=== PATIENT | male | born 1970 | race Caucasian/White ===

== ENCOUNTER 2018-04-02 09:07 | Outpatient (CLI) | payer BC ==
[2018-04-02 10:04] LABS: BASOPHILS # (AUTO) 0.1 /CMM (0.0-0.2); BASOPHILS % (AUTO) 0.7 % (0.0-2.0); EOSINOPHILS % (AUTO) 1.2 % (0.0-6.0); HEMATOCRIT 49 % (39-51); LYMPHOCYTES # (AUTO) 2.5 /CMM (0.8-4.8); LYMPHOCYTES % (AUTO) 33.7 % (20.0-44.0); MEAN CORPUSCULAR HGB CONC 33 g/dl (31.0-36.0); MEAN CORPUSCULAR VOLUME 84 fL (80-96); MONOCYTES # (AUTO) 0.4 /CMM (0.1-1.30); NEUTROPHILS # (AUTO) 4.3 /CMM (1.8-8.9); NEUTROPHILS % (AUTO) 58.4 % (43.0-81.0); PLATELET COUNT (AUTO) 252 /CMM (150-450); RDW COEFFICIENT OF VARIATION 12.7 (11.5-15.0); RED BLOOD CELL COUNT(AUTO) 5.81 MIL/uL (4.5-6.0); WHITE BLOOD COUNT (AUTO) 7.4 K/uL (4.3-11.0)
[2018-04-02 10:22] LABS: BILIRUBIN,TOTAL 0.5 mg/dL (0.2-1.0); CALCIUM, SERUM 9.2 mg/dL (8.5-10.1); CREATININE 0.8 mg/dL (0.6-1.3); POTASSIUM 4.1 mmol/L (3.5-5.1); TOTAL PROTEIN, SERUM 7.5 g/dL (6.4-8.2)
[2018-04-02 10:36] LABS: PROSTATE SPECIFIC ANTIGEN SCR 1.7 ng/mL (0.00-4.00); THYROID STIMULATING HORMONE 1.545 uIU/mL (0.358-3.74)
[2018-04-02 11:06] LABS: APPEARANCE,URINE CLEAR (CLEAR); BILIRUBIN,URINE NEGATIVE (NEGATIVE); BLOOD, URINE NEGATIVE Ery/uL (NEGATIVE); COLOR,URINE YELLOW (YELLOW); KETONES,URINE 2+ (NEGATIVE); LEUKOCYTE ESTERASE ,URINE NEGATIVE (NEGATIVE); NITRITE, URINE NEGATIVE (NEGATIVE); PH,URINE 5.5 (5.0-8.0); PROTEIN,URINE NEGATIVE (NEGATIVE); UGLUCOSE 3+ mg/dL (NEGATIVE); UROBILINOGEN,URINE 0.2 EU/dL (0.2)
[2018-04-02 11:12] LABS: BACTERIA,URINE Moderate /HPF (None Seen); RBC,URINE 0-2 /HPF (0-2); SQUAMOUS EPITHELIAL CELL,UR Rare /HPF (None Seen)
[2018-04-03 09:31] LABS: URIC ACID 4.6 mg/dL (2.6-7.2)
== END 2018-04-02 23:59 | disposition home or self-care (01) ==
LOC: LAB 09:07
PROVIDERS: ATTEND Legal Medicine
DX: Z00.01 Encounter for general adult medical examination with abnormal findings (principal); I10 Essential (primary) hypertension; E11.9 Type 2 diabetes mellitus without complications; E78.00 Pure hypercholesterolemia, unspecified; E03.9 Hypothyroidism, unspecified
CPT/HCPCS: 36415; 80053-TC; 80061-TC; 81000-TC; 82626; 84153-TC; 84402; 84403; 84439-TC; 84443-TC; 84550-TC; 85025-TC; 87086-TC; 87186-TC

== ENCOUNTER 2018-07-30 09:22 | Outpatient (CLI) | payer BC ==
[2018-07-30 10:08] LABS: CALCIUM, SERUM 8.8 mg/dL (8.5-10.1); CREATININE 0.8 mg/dL (0.6-1.3)
== END 2018-07-30 23:59 | disposition home or self-care (01) ==
LOC: LAB 09:22
PROVIDERS: ATTEND Legal Medicine
DX: E11.9 Type 2 diabetes mellitus without complications (principal)
CPT/HCPCS: 36415; 80048-TC

== ENCOUNTER 2022-05-23 11:15 | Outpatient (CLI) | payer BC | END 2022-05-23 23:59 | disposition home or self-care (01) | LOC: LAB 11:15 | PROVIDERS: ATTEND Legal Medicine | DX: J35.01 Chronic tonsillitis (principal) | CPT/HCPCS: 86403-TC ==

== ENCOUNTER → 2022-08-31 | Emergency (ER) | payer BC ==
[~2022-08-31] VITALS: Ht 180.3 cm; Wt 93.9 kg
[~2022-08-31] MED LIST: KETOROLAC TROMETHAMINE INJ 30 MG/ML VIAL IV ONE; KETOROLAC TROMETHAMINE INJ 30 MG/ML VIAL ONE; LIDOCAINE 1% INJ 50 ML MDV IJ ONE; MORPHINE SULFATE INJ 2 MG/ML DISP.SYRIN IV ONE; MORPHINE SULFATE INJ 4 MG/ML DISP.SYRIN ONE; OXYC-128 PO
--- NOTE | 2022-08-31 11:35 | NUR ---
c/o R arm pain with deformity s/p tripped and fall, no loc, hit head on the wall 03/28 ps
--- NOTE | 2022-08-31 11:35 | NUR ---
IV LINE STARTED ON L HAND 20G PATENT AND INTACT
--- NOTE | 2022-08-31 12:01 | NUR ---
CONSENT FOR PROCEDURE SIGNED BY PATIENTS .
--- NOTE | 2022-08-31 12:50 | NUR ---
X RAY AT BEDSIDE
--- NOTE | 2022-08-31 14:22 | NUR ---
DR. FLANAGAN AT BEDSIDE
[2022-08-31 14:33] VITALS: BP 138/79
--- NOTE | 2022-08-31 14:34 | NUR ---
Patient discharged to home in stable condition. Written and verbal after care instructions given. Patient verbalizes understanding of instruction.
== END | disposition home or self-care (01) ==
LOC: ER 11:23
DX: S52.511A Displaced fracture of right radial styloid process, initial encounter for closed fracture (principal); E11.9 Type 2 diabetes mellitus without complications; W01.0XXA Fall on same level from slipping, tripping and stumbling without subsequent striking against object, initial encounter; Y93.89 Activity, other specified; Y92.89 Other specified places as the place of occurrence of the external cause; Y99.8 Other external cause status
CPT/HCPCS: 25605; 99284; 73090; 73110 ×3; 96376; 96375; 96374; J3490; J2270 ×2; J1885

== ENCOUNTER 2022-09-02 11:35 | Outpatient (CLI) | payer BC ==
[~2022-09-02 11:35] MED LIST changes: -KETOROLAC TROMETHAMINE INJ 30 MG/ML VIAL IV ONE; -KETOROLAC TROMETHAMINE INJ 30 MG/ML VIAL ONE; -LIDOCAINE 1% INJ 50 ML MDV IJ ONE; -MORPHINE SULFATE INJ 2 MG/ML DISP.SYRIN IV ONE; -MORPHINE SULFATE INJ 4 MG/ML DISP.SYRIN ONE
[2022-09-02 12:16] LABS: BASOPHILS # (AUTO) 0.1 K/uL (0.0-0.2); BASOPHILS % (AUTO) 0.8 % (0.0-2.0); EOSINOPHILS % (AUTO) 1.5 % (0.0-6.0); HEMATOCRIT 46 % (39-51); HEMOGLOBIN 14.9 g/dL (13.5-17.5); LYMPHOCYTES # (AUTO) 2.3 K/uL (0.8-4.8); LYMPHOCYTES % (AUTO) 26.4 % (20.0-44.0); MEAN CORPUSCULAR HGB CONC 33 g/dl (31.0-36.0); MEAN CORPUSCULAR VOLUME 82 fL (80-96); MONOCYTES # (AUTO) 0.6 K/uL (0.1-1.30); MONOCYTES % (AUTO) 7.2 % (2.0-12.0); NEUTROPHILS # (AUTO) 5.6 K/uL (1.8-8.9); NEUTROPHILS % (AUTO) 64.1 % (43.0-81.0); PLATELET COUNT (AUTO) 269 K/uL (150-450); RED BLOOD CELL COUNT(AUTO) 5.53 MIL/uL (4.5-6.0); WHITE BLOOD COUNT (AUTO) 8.8 K/uL (4.3-11.0)
[2022-09-02 12:30] LABS: ALBUMIN 4.2 g/dL (3.4-5.0); BILIRUBIN,TOTAL 0.5 mg/dL (0.2-1.0); CALCIUM, SERUM 8.8 mg/dL (8.5-10.1); CREATININE 0.7 mg/dL (0.6-1.3); POTASSIUM 3.8 mmol/L (3.5-5.1); TOTAL PROTEIN, SERUM 7.5 g/dL (6.4-8.2)
== END 2022-09-02 23:59 | disposition home or self-care (01) ==
LOC: RAD 11:35
PROVIDERS: ATTEND Legal Medicine
DX: Z01.818 Encounter for other preprocedural examination (principal); Z20.822 Contact with and (suspected) exposure to COVID-19
CPT/HCPCS: 71046; 85025; 83036; 85610; 85730; 36415; 80053; U0003; C9803

== ENCOUNTER 2022-09-06 09:30 | Day surgery (SDC) | payer BC ==
--- NOTE | 2022-09-06 09:40 | NUR ---
RN NOTES RECEIVED PATIENT FROM HOME VIA GURNEY. PATIENT IS AWAKE AND A/O X4. ON ROOM AIR TOLERATING WELL. NO SOB NOTED. NOT IN DISTRESS. PATIENT IS FOR DAY SURGERY. FOR RIGHT WRIST ORIF AT 1130. CONSENTS WERE SIGNED BY PATIENT. WITH STABLE V/S. INSERTED IV AT THE LEFT FOREARM G20 SALINE LOCKED, PATENT AND INTACT. SAFETY MEASURE IN PLACED. CALL LIGHT WITHIN REACH. BED ON LOWEST LOCKED POSITION, SIDE RAILS UP X2. WILL CONTINUE TO MONITOR.
[2022-09-06] MEDS ORDERED: FENTANYL PF 250MCG/5ML AMPUL ONE (11:09)
[2022-09-06] MEDS ORDERED: MIDAZOLAM HCL 2 MG/2ML VIAL ONE (11:09)
[2022-09-06] MEDS ORDERED: BUPIVACAINE MPF 0.5% W/EPI INJ 30 ML VIAL ONE (11:10)
[2022-09-06] MEDS ORDERED: BUPIVACAINE 0.25% 75 MG/30 ML VIAL ONE (11:13)
[2022-09-06] MEDS ORDERED: HYDROMORPHONE 1 MG/1 ML DISP.SYRIN ONE ×2 (13:03→13:22)
[2022-09-06] MEDS: oxyCODONE/APAP (5/325 MG) 1 UDTAB TABLET PO PRN (14:25)
--- NOTE | 2022-09-06 16:30 | NUR ---
PRINT TRAFFIC MANAGER NOTES PATIENT WAS DISCHARGED HOME WITH [facility] IN STABLE CONDITION. DISCHARGE AND MEDICATION INSTRUCTIONS PROVIDED TO THE PATIENT. PATIENT VERBALIZED UNDERSTANDING. REMOVED IV LINE AND NAME WRIST BAND. ASSISTED VIA WHEELCHAIR TO THE LOBBY AND LEFT VIA PRIVATE CAR WITH IN STABLE CONDITION. MD AND CHARGE NURSE ARE AWARE OF THE DISCHARGE.
== END 2022-09-06 18:00 | disposition home or self-care (01) ==
LOC: DS 09:30 → MED 09:31 → UNDOADMIN 09:31 → UNDODISIN 16:30 → DS 18:00
PROVIDERS: ATTEND Student in an Organized Health Care Education/Training Program
DX: S52.552A Other extraarticular fracture of lower end of left radius, initial encounter for closed fracture (principal); X58.XXXA Exposure to other specified factors, initial encounter; Y93.89 Activity, other specified; Y92.89 Other specified places as the place of occurrence of the external cause; Y99.8 Other external cause status; I10 Essential (primary) hypertension; E78.5 Hyperlipidemia, unspecified; E66.9 Obesity, unspecified; K21.9 Gastro-esophageal reflux disease without esophagitis; E11.42 Type 2 diabetes mellitus with diabetic polyneuropathy; Z98.890 Other specified postprocedural states; Z79.899 Other long term (current) drug therapy
CPT/HCPCS: 25607; 73100; 82962 ×2; J0690; J1100; J2704; J3490 ×2; J2405; C1713 ×6; J7030; J2250; A4565; A6402; A4217; J3010; J1170 ×2; G0378

== ENCOUNTER 2024-12-23 09:42 | Day surgery (SDC) | payer BC ==
[2024-12-23 11:25] LABS: PLATELET COUNT (AUTO) 250 K/uL (150-450); RED BLOOD CELL COUNT(AUTO) 5.58 MIL/uL (4.5-6.0); RED CELL DISTRIBUTION WIDTH 13.3 % (11.5-15.0); WHITE BLOOD COUNT (AUTO) 8.5 K/uL (4.3-11.0)
[2024-12-23 11:41] LABS: CALCIUM, SERUM 8.7 mg/dL (8.5-10.1); CREATININE 0.6 mg/dL (0.6-1.3); SODIUM SERUM 139.0 mmol/L (136-145); UREA NITROGEN, BLOOD 9.0 mg/dL (7-18)
[2024-12-23 11:47] LABS: ASPARTATE AMINOTRANSFERASE 15.0 U/L (15-37); TOTAL PROTEIN, SERUM 6.9 g/dL (6.4-8.2)
[2024-12-23] MEDS ORDERED: LISI-768 PO (14:41)
[2024-12-23] MEDS ORDERED: GLIM4TAB PO (14:41)
[2024-12-23] MEDS ORDERED: OZEMPIC SQ (14:41)
[2024-12-23] MEDS ORDERED: ATOR20TA PO (14:41)
[2024-12-23] MEDS ORDERED: EMPA25TA PO (14:41)
[2024-12-23] MEDS ORDERED: OMEP20CA15 PO (14:41)
[2024-12-23] MEDS ORDERED: METH20TA PO (14:41)
[2024-12-23] MEDS ORDERED: METF1000 PO (14:41)
== END 2024-12-23 23:59 | disposition home or self-care (01) ==
LOC: DS 09:42 → MED 10:31 → UNDOADMIN 10:31 → UNDODISIN 14:55 → DS 23:59
PROVIDERS: ATTEND Internal Medicine Gastroenterology
DX: Z12.11 Encounter for screening for malignant neoplasm of colon (principal); K29.70 Gastritis, unspecified, without bleeding; K21.00 Gastro-esophageal reflux disease with esophagitis, without bleeding; K64.8 Other hemorrhoids; K57.30 Diverticulosis of large intestine without perforation or abscess without bleeding; E11.9 Type 2 diabetes mellitus without complications; Z79.84 Long term (current) use of oral hypoglycemic drugs; Z79.899 Other long term (current) drug therapy; Z98.890 Other specified postprocedural states
CPT/HCPCS: 36415; 43239; 45378; 71045; 80053; 85025; 88305; 88312; 88313; 93005; J2704; J3490; J7030; G0378